=== PATIENT | male | born 1985 | race Caucasian/White ===

== ENCOUNTER 2017-03-19 18:01 | Emergency (ER) | payer BC ==
[2017-03-19] MEDS ORDERED: Aspirin 81 MG Tab.Chew PO ONE (18:16)
[2017-03-19] MEDS ORDERED: Sodium Chloride 0.9% 10 ML Syringe FLUSH PRN (18:16)
[2017-03-19] MEDS ORDERED: Ketorolac 30 MG/ML SDV IVPUSH ONE (18:16)
[2017-03-19] MEDS ORDERED: Sodium Chloride 0.9% 2.5 ML Syringe FLUSH PRN (18:16)
--- NOTE | 2017-03-19 18:20 | EDM.PDOC ---
<Celia Torres - Last Filed: 03/19/17 18:54> ED HPI GENERAL MEDICAL PROBLEM - General Chief Complaint: Chest Pain Stated Complaint: CHEST PAIN Time Seen by Provider: 03/19/17 18:08 - History of Present Illness INITIAL COMMENTS - FREE TEXT/NARRATIVE: HISTORY AND PHYSICAL: History of present illness: The patient is a 31-year-old male with no stated chronic medical problems who presents with complaints of left-sided chest pain that woke him from sleep at 12 noon today. Patient works on the [employer] and does a lot of strenuous activity and has never had chest pain with these activities and had a normal shift last night and went to sleep and woke up with this discomfort. The pain did not radiate to his arm he just felt some tingling in his left upper extremity no pain in the left upper extremity. There is no radiation to jaw or back no diaphoresis no nausea but he did feel like he couldn't take a deep breath because of the discomfort. He's had no recent upper respiratory symptoms such as cough fever or shortness of breath. Has no leg pain or swelling no direct trauma to the area and no abdominal complaints nausea or vomiting. The patient took nothing for this pain over the last 6 hours and it is been constant in that time. He says there is also more discomfort with certain movements especially of his left arm if he raises it up and over his head. Patient denies any history of drug use and had his cholesterol and lipids checked when he was in the [employer] and was told that they were normal. He has no significant family history for cardiac disease. The patient says he had a similar episode of pain to this one 1 year ago but the episode last year was much worse. He said he went to an ER and was evaluated there and was told that it was not cardiac and he was not admitted. He followed up with his provider in the clinic and she did not really do any cardiac testing or stress test. Review of systems: As per history of present illness and below otherwise all systems reviewed and negative. Past medical history: As per history of present illness and as reviewed below otherwise noncontributory. Surgical history: As per history of present illness and as reviewed below otherwise noncontributory. Social history: No reported history of drug or alcohol abuse. Family history: As per history of present illness and as reviewed below otherwise noncontributory. Physical exam: Gen.: Well-developed well-nourished man who is nontoxic and vital signs been reviewed by me. He seems somewhat anxious on my evaluation but is cooperative. HEENT: Atraumatic, normocephalic, pupils reactive, negative for conjunctival pallor or scleral icterus, mucous membranes moist, throat clear, neck supple, nontender, trachea midline. Lungs: Clear to auscultation, breath sounds equal bilaterally, chest wall was some mild tenderness on palpation of the left upper chest area which reproduces the pain and one a range of motion his left upper extremity abductor and lifting it slightly above shoulder height he grimaces with discomfort. With movements he also seems uncomfortable but he is having no wheezing no stridor and no work of breathing. There is no chest wall defects deformities or crepitus and no soft tissue changes or ecchymosis Heart: S1S2, regular, negative for clicks, rubs, or JVD. Abdomen: Soft, nondistended, nontender. Negative for masses or hepatosplenomegaly. NABS Pelvis: Stable nontender. Genitourinary: Deferred. Rectal: Deferred. Extremities: Atraumatic, negative for cords or calf pain. Neurovascular unremarkable. No pedal edema or leg asymmetry Neuro: Awake, alert, oriented. Cranial nerves II through XII unremarkable. Cerebellum unremarkable. Motor and sensory unremarkable throughout. Exam nonfocal. Diagnostics: EKG chest x-ray CBC CMP d-dimer troponin Therapeutics: IV O2 monitor aspirin Toradol 1900--currently we are awaiting the troponin CMP and chest x-ray results. I will endorse his case to Dr. Hylton for follow-up of his testing results and discuss them with the patient and planned disposition. I have already spoken with the patient about this being more musculoskeletal as his risk stratification is very low. Impression: Atypical chest pain/musculoskeletal chest wall pain Definitive disposition and diagnosis as appropriate pending reevaluation and review of above. left chest Pain Score (Numeric/FACES): 5 - Related Data Allergies Allergy/AdvReac Type Severity Reaction Status Date / Time No Known Allergies Allergy Verified 03/19/17 18:12 Home Meds: Home Meds . [No Known Home Meds] 03/19/17 [History] ED ROS GENERAL - Review of Systems Review Of Systems: ROS reveals no pertinent complaints other than HPI. ED EXAM, GENERAL - Physical Exam Exam: See Below (See dictation) Course - Vital Signs Last Recorded V/S: Last Vital Signs Temp 97.6 F 03/19/17 18:05 Pulse 79 03/19/17 18:05 Resp 20 03/19/17 18:05 BP 140/88 03/19/17 18:05 Pulse Ox 97 03/19/17 18:48 - Orders/Labs/Meds Orders: Active Orders 24 hr Category Date Time Status Cardiac Monitoring [RC] . DIRECTED Care 03/19/17 18:15 Active EKG Documentation Completion [RC] STAT Care 03/19/17 18:15 Active Oxygen Therapy, ED [RC] ASDIRECTED Care 03/19/17 18:15 Active Pulse Oximetry [RC] ASDIRECTED Care 03/19/17 18:15 Active Chest 1V Frontal [CR] Stat Exams 03/19/17 18:16 Taken Sodium Chloride 0.9% [Saline Flush] Med 03/19/17 18:16 Active 10 ml FLUSH ASDIRECTED PRN Sodium Chloride 0.9% [Saline Flush] Med 03/19/17 18:16 Active 2.5 ml FLUSH ASDIRECTED PRN Saline Lock Insert [OM.PC] Stat Oth 03/19/17 18:15 Ordered Medication Orders Sodium Chloride (Saline Flush) 10 ml FLUSH ASDIRECTED PRN PRN Reason: Keep Vein Open Last Admin: 03/19/17 18:45 Dose: 10 ml Sodium Chloride (Saline Flush) 2.5 ml FLUSH ASDIRECTED PRN PRN Reason: Keep Vein Open Last Admin: 03/19/17 18:45 Dose: 2.5 ml Labs: Laboratory Tests 03/19/17 03/19/17 03/19/17 Range/Units 18:22 18:22 18:22 WBC 8.22 (4.0-11.0) K/uL RBC 4.55 (4.50-5.90) M/uL Hgb 14.3 (13.0-17.0) g/dL Hct 40.5 (38.0-50.0) % MCV 89.0 (80.0-98.0) fL MCH 31.4 (27.0-32.0) pg MCHC 35.3 (31.0-37.0) g/dL RDW Std Deviation 39.9 (28.0-62.0) fl RDW Coeff of Noble 13 (11.0-15.0) % Plt Count 224 (150-400) K/uL MPV 9.50 (7.40-12.00) fL Neut % (Auto) 67.7 (48.0-80.0) % Lymph % (Auto) 22.3 (16.0-40.0) % Johnston % (Auto) 8.5 (0.0-15.0) % Eos % (Auto) 1.0 (0.0-7.0) % Baso % (Auto) 0.5 (0.0-1.5) % Neut # (Auto) 5.6 (1.4-5.7) K/uL Lymph # (Auto) 1.8 (0.6-2.4) K/uL Johnston # (Auto) 0.7 (0.0-0.8) K/uL Eos # (Auto) 0.1 (0.0-0.7) K/uL Baso # (Auto) 0.0 (0.0-0.1) K/uL Nucleated RBC % 0.0 /100WBC Nucleated RBCs # 0 K/uL D-Dimer, Quantitative < 0.19 (0.0-0.52) mg/LFEU Sodium 139 (136-146) mmol/L Potassium 4.0 (3.5-5.1) mmol/L Chloride 108 (98-110) mmol/L Carbon Dioxide 22 (21-31) mmol/L BUN 17 (6.0-23.0) mg/dL Creatinine 1.3 (0.6-1.5) mg/dL Est Cr Clr Drug Dosing 76.98 mL/min Estimated GFR (MDRD) > 60.0 ml/min Glucose 100 (60-110) mg/dL Calcium 8.8 (8.8-10.8) mg/dL Total Bilirubin 0.5 (0.1-1.5) mg/dL AST 21 (5-40) IU/L ALT 18 (8-54) IU/L Alkaline Phosphatase 52 (40-150) Troponin I < 0.10 (0.0-0.29) NG/ML Total Protein 6.9 (6.0-8.0) g/dL Albumin 4.2 (3.5-5.0) g/dL Globulin 2.7 (2.0-3.5) g/dL Albumin/Globulin Ratio 1.6 (1.3-2.8) Meds: Medications Generic Name Dose Route Start Last Admin Trade Name Freq PRN Reason Stop Dose Admin Sodium Chloride 10 ml 03/19/17 18:16 03/19/17 18:45 Saline Flush FLUSH 10 ml ASDIRECTED PRN Administration Keep Vein Open Sodium Chloride 2.5 ml 03/19/17 18:16 03/19/17 18:45 Saline Flush FLUSH 2.5 ml ASDIRECTED PRN Administration Keep Vein Open Discontinued Medications Generic Name Dose Route Start Last Admin Trade Name Freq PRN Reason Stop Dose Admin Aspirin 324 mg 03/19/17 18:16 03/19/17 18:35 Aspirin PO 03/19/17 18:17 324 mg ONETIME ONE Administration Ketorolac Tromethamine 30 mg 03/19/17 18:16 03/19/17 18:36 Toradol IVPUSH 03/19/17 18:17 30 mg ONETIME ONE Administration Departure - Departure Disposition: Home, Self-Care 01 Condition: Good Clinical Impression: Atypical chest pain, Musculoskeletal chest pain - Discharge Information Referrals: PCP,None [Primary Care Provider] - Forms: ED Department Discharge Additional Instructions: The following information is given to patients seen in the emergency department who are being discharged to home. This information is to outline your options for follow-up care. We provide all patients seen in our emergency department with a follow-up referral. The need for follow-up, as well as the timing and circumstances, are variable depending upon the specifics of your emergency department visit. If you don't have a primary care physician on staff, we will provide you with a referral. We always advise you to contact your personal physician following an emergency department visit to inform them of the circumstance of the visit and for follow-up with them and/or the need for any referrals to a consulting specialist. The emergency department will also refer you to a specialist when appropriate. This referral assures that you have the opportunity for followup care with a specialist. All of these measure are taken in an effort to provide you with optimal care, which includes your followup. Under all circumstances we always encourage you to contact your private physician who remains a resource for coordinating your care. When calling for followup care, please make the office aware that this follow-up is from your recent emergency room visit. If for any reason you are refused follow-up, please contact the [facility] emergency department at and ask to speak to the emergency department charge nurse. Primary care- Internal Medicine and Family [address] [address] <Rachid Real - Last Filed: 03/19/17 19:46> ED HPI GENERAL MEDICAL PROBLEM - History of Present Illness INITIAL COMMENTS - FREE TEXT/NARRATIVE: Seen and examined the patient as well as discuss his labs with patient I picked him up at sign out to follow lab/cardiac enzymes Patient is in no distress relaxed comfortable during exam I can reproduce symptoms with movement of his left arm at full extension as well as palpation of left pectoralis major reproduces his discomfort. 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 and will be doing some more lifting tomorrow using a crowbar/breaker bar which is likely contributing to his symptomology is with a clinical safety specialist and I will be trying to give him a little clipper and turner duty for the next few days from a muscular skeletal standpoint to help the spasm improved No other symptoms such as fever nausea vomiting chills sweats no headache dizziness or palpitation no bowel or urine symptoms HEENT grossly within normal limits Chest clear throughout no wheeze or crackle symmetrical expansion CV regular rate and rhythm no murmur Abdomen benign Extremities four-inch motion strength 5 out of 5 no edema LICENSED MASSAGE THERAPIST alert nonfocal Musculoskeletal as per history of present illness above otherwise unremarkable Assessment Muscle spasm Chest wall pain Plan Rest ice ibuprofen Return if symptoms persist or worsen or new concerning symptoms develop Departure - Departure Time of Disposition: 19:46
[2017-03-19 18:56] LABS: CHLORIDE,CL 108 mmol/L (98-110); SODIUM,NA 139 mmol/L (136-146)
--- NOTE | 2017-03-20 08:50 | CR ---
EXAM DATE: 03/19/17 PATIENT'S AGE: 31 Patient: FIORELLA FERGUSON Facility: [place], [place] Site . Site : 1985 Study: XRay Chest [id number] 7:17:33 PM Ordering Physician: Melissa Yang Final Report: INDICATION: Chest pain, shortness of breath. TECHNIQUE: Chest radiograph 1 view COMPARISON: None FINDINGS: Cardiovascular and mediastinum: The heart silhouette is normal in size and morphology. The mediastinum is normal in appearance. Lungs and pleural spaces: Both lungs are unremarkable in appearance. No sign of pleural effusion seen. No pneumothorax is identified. Bones and soft tissues: No significant findings. IMPRESSION: 1. No acute cardiopulmonary disease is seen. Dictated by Conner Diop MD @ 03/19/2017 7:36:23 PM Dictated by: Conner Diop MD @ 03/19/2017 19:36:28 (Electronic Signature) Report Signed by Proxy. FELIX
== END 2017-03-19 19:57 | disposition home or self-care (01) ==
LOC: MW.ED 18:01
DX: R07.89 Other chest pain (principal); M62.838 Other muscle spasm
CPT/HCPCS: 36415; 71045; 80053; 84484; 85025; 85379; 96374; 99285; A9270; J1885; 93005; 99284

== ENCOUNTER 2024-11-24 19:46 | Emergency (ER) | payer BC ==
[2024-11-24] MEDS: Ketorolac 30 MG/ML SDV IVPUSH ONE (20:26)
[2024-11-24] MEDS: Lactated Ringers 1,000 ML IV ONE (20:28)
== END 2024-11-24 22:00 | disposition home or self-care (01) ==
LOC: MW.ED 19:46
DX: G43.909 Migraine, unspecified, not intractable, without status migrainosus (principal); Z79.899 Other long term (current) drug therapy
CPT/HCPCS: 96361; 96374; 96375; 99283; J1885; J2765; J7120